=== PATIENT | male | born 1985 | race Caucasian/White ===

== ENCOUNTER 2019-06-19 13:31 | Emergency (ER) | payer OTHER ==
[~2019-06-19] VITALS: Ht 175.3 cm; Wt 68.0 kg
[2019-06-19] MEDS ORDERED: TUSNEL LIQUID178 ML PO (19:01)
[2019-06-19] MEDS ORDERED: CLARITIN10 MG PO (19:01)
[2019-06-19] MEDS ORDERED: DOLOGEN CAPLET1 EACH PO (19:01)
== END 2019-06-19 19:40 | disposition home or self-care (01) ==
LOC: ER 13:31
DX: B34.9 Viral infection, unspecified (principal)